=== PATIENT | male | born 1975 | race Two or more races ===

== ENCOUNTER 2019-03-26 17:08 | Emergency (ER) | payer MEDICAID ==
[~2019-03-26] VITALS: Ht 177.8 cm; Wt 102.1 kg
[2019-03-26] MEDS ORDERED: traMADol HCL 50 MG TAB PO ONE (21:00)
[2019-03-26] MEDS ORDERED: GASTROGRAFIN 30 ML SOL ONE ×2 (21:23→21:46)
[2019-03-27] VITALS: BP 138/99
== END 2019-03-27 00:46 | disposition home or self-care (01) ==
LOC: ER 17:08 → EDBD 17:08 → ER 03-27 00:46
DX: S01.01XA Laceration without foreign body of scalp, initial encounter (principal); S16.1XXA Strain of muscle, fascia and tendon at neck level, initial encounter; R07.9 Chest pain, unspecified; V49.49XA Driver injured in collision with other motor vehicles in traffic accident, initial encounter; Y93.89 Activity, other specified; Y99.8 Other external cause status; Y92.89 Other specified places as the place of occurrence of the external cause
CPT/HCPCS: 12002; 70450; 70490; 71045; 72125; 99284; Q9963